=== PATIENT | female | born 1965 | race Caucasian/White ===

== ENCOUNTER 2017-03-26 11:21 | Emergency (ER) | payer OTHER ==
[~2017-03-26] VITALS: Ht 162.6 cm; Wt 80.0 kg
[~2017-03-26 11:21] MED LIST: SERT-165 PO; [UNRECOGNIZED DRUG - CODE] PO
[2017-03-26 11:25] VITALS: Ht 162.6 cm; Wt 80.0 kg
--- NOTE | 2017-03-26 11:42 | ERA ---
ER Documentation Chief Complaint Date/Time DATE: 03/26/17 TIME: 11:40 Chief Complaint MECH FALL ,HAS LEFT ELBOW PAIN HPI 52-year-old female with history of lupus presents 2-3 hours status post mechanical fall with impact to the right elbow. Pain 5 out of 10. Pain 7 out of 10 when moving and 9 out of 10 when touching. Patient denies trauma to any other areas. Patient has not taken any medication to this point to relieve the symptoms. Denies any loss of motion, numbness, tingling, or swelling. Patient has no other complaints and describes no other associated manifestations. Nursing notes have been reviewed and are consistent with history given. ROS All systems reviewed and are negative except as per history of present illness. Medications Home Meds Active Scripts Ibuprofen* (Motrin*) 400 Mg Tab, 400 MG PO Q6, #30 TAB Prov:CHATO BOBBY PA-C 03/26/17 Reported Medications Sertraline Hcl* (Sertraline Hcl*) 100 Mg Tablet, 100 MG PO DAILY 03/31/13 Levothyroxine Sodium (Levothroid) 112 Mcg Tablet, 112 MCG PO DAILY 03/31/13 Allergies Allergies: Coded Allergies: No Known Allergy (Unverified , 03/31/13) PMhx/Soc History of Surgery: No Hx Neurological Disorder: No Hx Respiratory Disorders: No Hx Cardiac Disorders: No Hx Psychiatric Problems: Yes (BIPOLAR) Hx Miscellaneous Medical Probl: Yes (BELINDA'S DISEASE, REYNAUDS) Hx Alcohol Use: Yes (OCASSIONAL ) Hx Substance Use: No Hx Tobacco Use: Yes Physical Exam Vitals Vital Signs Date Time Temp Pulse Resp B/P Pulse Ox O2 Delivery O2 Flow Rate FiO2 03/26/17 11:25 98.0 91 20 139/91 99 Physical Exam Const: Overweight 52-year-old female in the wheelchair on initial presentation in a sling. Head: Atraumatic Eyes: Normal Conjunctiva ENT: Normal External Ears, Nose and Mouth. Neck: Full range of motion..~ No meningismus. Resp: Clear to auscultation bilaterally Cardio: Regular rate and rhythm, no murmurs. Radial pulses 2+ bilaterally. Cap refill less than 2 seconds bilaterally. Abd: Soft, non tender, non distended. Normal bowel sounds Skin: No petechiae or rashes Back: No midline or flank tenderness Ext: Right elbow tenderness palpation over the open process. Palpation of the radius and ulna were unremarkable for tenderness. No swelling visualized. No skin discoloration.Swelling of the hands secondary to lupus - chronic condition/symptom. Neur: Awake and alert. Neurovascularly intact bilaterally. Psych: Normal Mood and Affect Results 24 hrs Current Medications Medications (Trade) Dose Ordered Sig/Aliza Route PRN Reason Start Time Stop Time Status Last Admin Dose Admin Ibuprofen (Motrin) 600 mg ONCE ONCE PO 03/26/17 12:00 03/26/17 12:01 DC Ketorolac Tromethamine (Toradol) 30 mg ONCE STAT IM 03/26/17 11:49 03/26/17 11:51 DC 03/26/17 11:55 Procedures/MDM 52-year-old female presents to 3 hours status post mechanical fall with impact to the right elbow as described in history and physical examination. Patient was given Toradol in the ED with adequate relief of symptoms. Patient has a history of opioid dependence and thus opioids were not used. X-ray was obtained , read by the radiologist, given the following impression: Small potential joint effusion. Ligamentous and tendinous injury is not excluded. If characterization of the ligaments and tendons is needed MRI is recommended. If there is high clinical suspicion for bony traumatic injury, further evaluation with CT should be considered. Posterior long-arm splint was applied. I have instructed patient to follow-up with orthopedics in the next week. Patient has verbally acknowledged that she understands this. Patient was neurovascularly intact after the splint application. I have spoke with the patient regarding their condition and future management. They have verbally responded that they understand their status and treatment plan. Ibuprofen prescription for discomfort. The patient s vitals are stable, and their current condition is appropriate for discharge. The patient will be given discharge instructions with return precautions. Departure Diagnosis: Primary Impression: Elbow injury Qualified Code: S59.901A - Injury of right elbow, initial encounter Additional Impression: Elbow pain Qualified Code: M25.521 - Right elbow pain Condition: Stable Additional Instructions: Follow-up with orthopedics in the next week. Return to emergency department immediately if symptoms change or worsen. If adverse reactions occur with medication discontinue return to emergency department immediately. A list of improvement specialist has been handed to you in this back. CHATO BOBBY PA-C Mar 26, 2017 11:42
[2017-03-26] MEDS ORDERED: KETOROLAC 30 MG INJ IM STA (11:49)
[2017-03-26] MEDS ORDERED: IBUPROFEN 600 MG TAB PO ONE (12:00)
--- NOTE | 2017-03-26 12:42 | RADRPT ---
PROCEDURE: XR Elbow 3 Views. CLINICAL INDICATION: Right elbow pain and trauma. TECHNIQUE: AP, lateral and oblique views of the right elbow performed. COMPARISON: None. FINDINGS: The osseous structures are intact. No destructive bony lesions are observed. Interosseous spaces a ppear normal. Small potential joint effusion is noted. IMPRESSION: Small potential joint effusion. Ligamentous and tendinous injury is not excluded. If characterizati on of the ligaments and tendons is needed MRI is recommended. If there is high clinical suspicion for bony traumatic injury, further evaluation with CT should be considered. RPTAT: AA .Tobi Hamm MD, Date Time Electronically viewed and signed by .Tboi Hamm MD, on 03/26/2017 12:41 .P/
[2017-03-26] MEDS ORDERED: IBUP400T22 PO (12:50)
== END 2017-03-26 14:28 | disposition home or self-care (01) ==
LOC: FTE 11:21
DX: S59.901A Unspecified injury of right elbow, initial encounter (principal); W18.39XA Other fall on same level, initial encounter; Y92.9 Unspecified place or not applicable; Z87.891 Personal history of nicotine dependence
CPT/HCPCS: 29105; 73080; 96372; 99284; J1885